=== PATIENT | male | born 1985 | race Caucasian/White ===

== ENCOUNTER 2017-09-01 10:56 | Emergency (ER) | payer OTHER ==
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
[2017-09-01 11:51] VITALS: BP 165/73; PULSE 95; RESP 18; TEMP 98.6; O2SAT 95
== END 2017-09-01 12:04 | disposition home or self-care (01) ==
DX: G89.18 Other acute postprocedural pain (principal); M54.9 Dorsalgia, unspecified

== ENCOUNTER 2018-03-09 15:51 | Emergency (ER) | payer OTHER ==
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
[2018-03-09] MEDS ORDERED: KETOROLAC 15 MG/1 ML SDV IVP ONE (17:24)
[2018-03-09] MEDS ORDERED: fentaNYL 100 MCG/2 ML INJ IVP ONE ×2 (17:24→19:09)
[2018-03-09] MEDS ORDERED: NS 1,000 ML IV ONE (17:24)
[2018-03-09] MEDS ORDERED: ONDANSETRON 4 MG/2 ML VIAL IVP ONE (17:24)
[2018-03-09] MEDS ORDERED: GADOBUTROL 10 ML VIAL IVP ONE (18:03)
[2018-03-09] MEDS ORDERED: OXYCODONE/APAP 5/325 TAB PO ONE (18:55)
[2018-03-09 19:54] VITALS: BP 143/100
== END 2018-03-09 19:54 | disposition home or self-care (01) ==
DX: M54.5 Low back pain (principal); M48.061 Spinal stenosis, lumbar region without neurogenic claudication; E86.9 Volume depletion, unspecified; Z98.890 Other specified postprocedural states
CPT/HCPCS: 82435-PO; 82565-PO; 82947-PO; 84132-PO; 84295-PO; 84520-PO; 85014-PO; 96374; A9585; J1885; J2405; J3010

== ENCOUNTER 2018-03-11 10:25 | Emergency (ER) | payer SELFPAY ==
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
[2018-03-11] MEDS ORDERED: HYDROmorphONE/DILAUDID 2 MG TAB PO ONE (11:23)
[2018-03-11] MEDS ORDERED: HYDROmorphONE/DILAUDID 2 MG/ML INJ IM ONE (11:28)
[2018-03-11 11:43] VITALS: BP 170/95
== END 2018-03-11 11:43 | disposition home or self-care (01) ==
DX: M54.5 Low back pain (principal)
CPT/HCPCS: J1170

== ENCOUNTER 2018-03-17 13:39 | Inpatient (IN) | payer OTHER ==
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
[2018-03-17] MEDS ORDERED: HYDROmorphONE/DILAUDID 2 MG/ML INJ IVP ONE ×2 (15:23→16:29)
[2018-03-17] MEDS ORDERED: LORazepam 2 MG/ML INJ IVP ONE (15:43)
[2018-03-17] MEDS ORDERED: ONDANSETRON DISINTEGRATING 4 MG TAB PO PRN (16:01)
[2018-03-17] MEDS ORDERED: ACETAMINOPHEN 325 MG TAB PO PRN (16:01)
[2018-03-17] MEDS ORDERED: ONDANSETRON 4 MG/2 ML VIAL IVP PRN (16:01)
[2018-03-17] MEDS ORDERED: HYDROmorphONE/DILAUDID 1 MG/ML INJ IVP PRN (16:09)
[2018-03-17] MEDS ORDERED: NALOXONE HCL 0.4 MG/ML INJ IVP PRN (16:28)
[2018-03-17] MEDS ORDERED: MAGNESIUM HYDROXIDE 30 ML UDCUP PO PRN (16:32)
[2018-03-17] MEDS ORDERED: POLYETHYLENE GLYCOL 3350 17 GM PKT PO PRN (16:32)
[2018-03-17] MEDS ORDERED: BISACODYL 10 MG SUPP PR PRN (16:32)
[2018-03-17] MEDS ORDERED: LACTULOSE 20 GM/30 ML UDCUP PO PRN (16:32)
--- NOTE | 2018-03-17 16:38 | NEUSURGPN ---
Assessment/Plan: Assessment: 32 yr old M with history of L5-S1 fusion in 2015 and L4-5 laminectomy 5 weeks ago in [place]. Plan: Please see full dictated consult when available -MRI lumbar shows severe left L4-5 stenosis, L4-5 disc herniation and interspinous fluid at L4-5. Will need to rule out infection prior to any surgical intervention. -Surgery suggested is a L4-5 fusion. Patient would like to try an injection which I have ordered for the morning. -NPO at midnight -Please call neurosurgery with any questions Subjective: Severe left leg pain Objective: AxO x3 CN 2-12 grossly intact INNO x4 5/5 BLE expect left EHL 5- 5/5 BUE Lumbar incision swollen at proximal end, intact, no drainage Neuro Check Frequency: per routine Urinary Catheter in Place: No - Physician Discussed Patient with : Marielena Patient Seen by : Calvin Neurosurgery Physical Exam - Vitals, I&O, Labs Vital Signs Temp Pulse Resp BP Pulse Ox 36.8 C 106 H 18 149/117 H 96 03/17/18 13:47 03/17/18 15:04 03/17/18 15:04 03/17/18 15:04 03/17/18 15:04 ICD10 Worksheet Patient Problems: Problems Problem Status Onset Lumbar radiculopathy, acute Acute Lumbar stenosis Acute
[2018-03-17 17:42] LABS: PLATELET COUNT 241 10^3/uL (150-400)
[2018-03-17] MEDS: HYDROmorphONE/DILAUDID 6 MG/30 ML PCA IV PRN (18:00)
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
[2018-03-17 18:23] LABS: INR 0.97 (0.83-1.16)
[2018-03-17 19:35] LABS: PROTIME(PATIENT) 13.1 SEC (12.0-15.0)
[2018-03-17] MEDS ORDERED: PREGABALIN 50 MG CAP PO SCH (21:00)
[2018-03-17] MEDS ORDERED: PREGABALIN 100 MG CAP PO SCH (21:00)
[2018-03-17] MEDS ORDERED: oxyCODONE IR 5 MG TAB PO PRN ×2 (21:10→22:29)
[2018-03-17] MEDS: PREGABALIN 150 MG CAP PO SCH (21:35)
[2018-03-17] MEDS: LORazepam 2 MG/ML INJ IVP PRN (21:37)
[2018-03-17] MEDS: ACETAMINOPHEN 500 MG TAB PO SCH (23:07)
[2018-03-17] MEDS: SENNOSIDES/DOCUSATE SODIUM TAB PO SCH (23:30)
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
[2018-03-18] MEDS: HYDROmorphONE/DILAUDID 6 MG/30 ML PCA IV PRN ×2 (05:23→13:58)
[2018-03-18] MEDS: LORazepam 2 MG/ML INJ IVP PRN ×3 (05:37→18:48)
--- NOTE | 2018-03-18 07:20 | NEUSURGPN ---
Assessment/Plan: Assessment: 32 yr old M with history of L5-S1 fusion in 2015 and L4-5 laminectomy 5 weeks ago in [place]-admitted to with LLE pain and LBP Plan: -lumbar stenosis at L4/5-pt with ASD at L4/5 and will need surgery if not responsive to injections -pt does not want surgery and wants to exhaust all conservative measures which we are supportive of this as well -pending injections after approval from as there is a consideration of an infection-injection on hold -PT/OT -call with any questions or concerns -MRI lumbar shows severe left L4-5 stenosis, L4-5 disc herniation and interspinous fluid at L4-5. Will need to rule out infection prior to any surgical intervention. -surgery suggested is a L4-5 fusion -NPO at midnight -Please call neurosurgery with any questions Subjective: Awake and alert. NAD. Pt with continued lower back and LLE pain. No paris/neck/ chest/abd or gu complaints. No f/c/n/v/d. Objective: AAO x 3, PERRLA/EOMI no droop CN 2-12 grossly intact +lt touch 5/5 BUE/BLE = Neuro Check Frequency: per routine Urinary Catheter in Place: No - Physician Discussed Patient with : Calvin Patient Seen by : Calvin Neurosurgery Physical Exam - Vitals, I&O, Labs I and O 03/17/18 03/18/18 03/19/18 05:59 05:59 05:59 Intake Total 200 Balance 200 Intake: Oral (ml) 200 Other: Intake Quantity Yes Sufficient Number of Voids Toilet 2 Vital Signs Temp Pulse Resp BP Pulse Ox 37.0 C 83 16 158/110 H 93 03/18/18 04:00 03/18/18 06:00 03/18/18 06:00 03/18/18 06:00 03/18/18 06:00 Laboratory Results 03/17/18 16:52 03/17/18 16:52 ICD10 Worksheet Patient Problems: Problems Problem Status Onset Lumbar radiculopathy, acute Acute Lumbar stenosis Acute
[2018-03-18] MEDS: ACETAMINOPHEN 500 MG TAB PO SCH ×2 (08:19→15:59)
[2018-03-18] MEDS: PREGABALIN 150 MG CAP PO SCH (08:19)
[2018-03-18] MEDS: SENNOSIDES/DOCUSATE SODIUM TAB PO SCH (08:20)
[2018-03-18] MEDS ORDERED: hydrALAZINE 20 MG/ML VIAL IVP PRN (08:24)
[2018-03-18] MEDS ORDERED: HYDROmorphONE/DILAUDID 1 MG/ML INJ IVP ONE (08:52)
--- NOTE | 2018-03-18 08:55 | HOSPPROG ---
Hospitalist Progress Note Assessment/Plan: #Acute on chronic pain control: cont Dilaudid CAREER TRANSITION SPECIALIST. I have calculated recent home usage that is reflected in basal rate with adequate breakthrough -considered adding Soma, but very somnolent this morning -suspect PTSD, anxiety contributing -no e/o infection thus far: afebrile, no white count. Blood cultures pending #Toxic encephalopathy: additional oxy was ordered last night in combo with Ativan. Decrease ativan. Cont CAREER TRANSITION SPECIALIST at current dose. NO additional oral medications #L4-L5 stenosis: IR to perform epidural injection today. Ultimately warrants a fusion #Accelerated HTN: PRN hydral. He reports normal BP at home #PTSD #Diet: regular Disp: inpatient for acute on chronic pain warranting CAREER TRANSITION SPECIALIST, epidural injection Subjective: required sternal rub this morning by staff because somnolent Objective: Vital Signs Temp Pulse Resp BP Pulse Ox 36.7 C 73 18 176/103 H 92 03/18/18 07:37 03/18/18 07:37 03/18/18 07:37 03/18/18 07:37 03/18/18 07:37 Laboratory Results 03/17/18 16:52 03/17/18 16:52 03/17/18 03/18/18 03/19/18 05:59 05:59 05:59 Intake Total 200 Balance 200 PT 13.1 SEC (12.0-15.0) 03/17/18 16:52 INR 0.97 (0.83-1.16) 03/17/18 16:52 - Time Spent With Patient Time Spent with Patient: greater than 35 minutes Time Spent with Patient: Greater than 35 minutes spent on this patients care, greater than 50% of time spent counseling, educating, and coordinating care regarding the above mentioned plan. - Physical Exam Constitutional: uncomfortable Ears, Nose, Mouth, Throat: moist mucous membranes Cardiovascular: regular rate and rhythym Respiratory: no respiratory distress Gastrointestinal: normoactive bowel sounds Genitourinary: no bladder fullness Skin: warm Musculoskeletal: other (back with swelling at lumbar surgical site. no redness, drainage) Neurologic: CN II-XII Intact Psychiatric: anxious ICD10 Worksheet Patient Problems: Problems Problem Status Onset Lumbar radiculopathy, acute Acute Lumbar stenosis Acute
[2018-03-18] MEDS ORDERED: DICLOFENAC SODIUM 75 MG TAB PO SCH (09:00)
[2018-03-18] MEDS ORDERED: HYDROmorphone HCL 0.5 MG/0.5 ML SYR IVP ONE (09:00)
--- NOTE | 2018-03-18 14:10 | ASMTCMCOM ---
CM Note CM Note Notes: Pt presents with lumbar rediculopathy, spinal stenosis. Neurosurgery consulting, will try non-surgical management and pt to have injection this afternoon. Pt is (hx PTSD, anxiety) who resides with fisuzette in a second floor rental. PT rec [facility] vs. SNF today. CM to follow pt progress after injection for d/c planning. D/c plan of care: TBD Date Signed: 03/18/2018 02:09 PM Electronically Signed By:LYNETTE Angela
[2018-03-18] MEDS ORDERED: TRIAMCINOLONE ACETONIDE 200 MG/5 ML MDV IM ONE (15:34)
[2018-03-18] MEDS ORDERED: LIDO/EPI 1% **for epidural** 30 ML SDV ONE (15:35)
[2018-03-18] MEDS ORDERED: LIDOCAINE 1% 300 MG/30 ML SDV ONE (15:36)
--- NOTE | 2018-03-18 15:56 | PDMN ---
Medical Necessity Medical necessity: Pt meets inpt criteria per MD order and [facility] [place]-[facility], Back Pain. 32 y/o w/hx L1-S1 reconstruction presented w/severe back pain, admitted w/acute on chronic back pain requiring IV Dilaudid PROFESSOR OF COMMUNICATION ARTS for pain control and IV Ativan for spasms and anxiety, recent MRI shows sever lumbar stenosis at L4/5 w/ASD. Neurosurg consult, surg may be needed if not responsive to injections, PT/OT evals pending, anticpate>2MN for ongoing eval/management.
[2018-03-18] MEDS ORDERED: MIDAZOLAM 2 MG/2 ML VIAL IVP PRN (17:08)
[2018-03-18] MEDS ORDERED: FLUMAZENIL 0.5 MG/5 ML MDV IVP PRN (17:08)
[2018-03-18] MEDS ORDERED: fentaNYL 100 MCG/2 ML INJ IVP PRN (17:08)
[2018-03-18] MEDS ORDERED: NS 1,000 ML IV SCH (17:15)
[2018-03-18] MEDS ORDERED: HYDROmorphone HCL 0.5 MG/0.5 ML SYR IVP PRN (18:11)
--- NOTE | 2018-03-18 18:12 | PDRADPN ---
Radiology Procedure Note Date of Procedure: 03/18/18 Radiologist: Jessica Wilkins Anesthesia: IV Sedation Pre-op Diagnosis: SEVERE BACK PAIN Post-op Diagnosis: SAME Indication: PAIN Procedure: CAUDAL AND L3-4 MARTÍN Inf/Abcess present in the surg proc area at time of surgery?: No
[2018-03-18] MEDS ORDERED: LORazepam 2 MG/ML INJ ONE (18:44)
[2018-03-18] MEDS ORDERED: HYDROmorphONE/DILAUDID 2 MG/ML INJ ONE (19:34)
[2018-03-18 20:18] VITALS: BP 174/101
--- NOTE | 2018-03-19 15:08 | GDS ---
DISCHARGE DIAGNOSES: 1. Acute on chronic back pain. 2. Chronic opioid dependency. 3. Posttraumatic stress disorder, likely anxiety. 4. Hypertension. CONSULTATIONS: Dr. Lauro Simpson, Dr. Hector Wilkins. PROCEDURES: L3 caudal epidural injection. HISTORY OF PRESENT ILLNESS: A 32-year-old male with history of L1-S1 reconstruction surgery, who pre sented to the ER several times over the past few weeks. His most recent surgery was a laminectomy at the end of January in [place]. In August, he slipped and fell on an icy hill, which resulted i n progressive back pain and he underwent this laminectomy. He was doing well, doing physical therapy , but over the last week, pain has progressed. He has been evaluated at [facility], was started on a Medrol Ellis and Lyrica. He had been planned to have an epidural injection, but pain became so signif icant that he presented to the hospital. He had been taking 30 mg of oxycodone every 4 hours. Previous to that he was taking MS Contin 90 b.i .d. plus breakthrough. New symptom for him was numbness, weakness in his left foot. He was evaluate d by Dr. Simpson's team and recommended fusion surgery, but patient did not want that initially becpola e he needs to get settled here with his home and his girlfriend. HOSPITAL COURSE BY PROBLEM: 1. Acute on chronic back pain: Secondary to lumbar stenosis. Recommended fusion surgery. He was i nitially placed on Dilaudid TOWER HOIST OPERATOR and Ativan for spasms. He became somnolent; thus, dosage was not esc alated. He became very frustrated. He underwent epidural injection by Dr. Wilkins yesterday, and when tiarra armstrong returned from procedure, he asked if his medications would be increased, and when told no, he left against medical advice. 2. History of posttraumatic stress disorder, likely anxiety. This is contributing to his pain. 3. Hypertension: Was given p.r.n. hydralazine here. Recommend follow up as an outpatient. DISPOSITION: Patient left AMA after his spinal injection. /[id number]/MODL
== END 2018-03-18 21:25 | disposition left against medical advice (07) | DRG 552 ==
LOC: INTOOBSV 15:28 → F3N 17:16 → OBSVTOIN 03-18 10:59 → UNDODISIN 03-18 21:25
PROVIDERS: ADMIT Internal Medicine; ATTEND Internal Medicine
PROC: 3E0S33Z Introduction of Anti-inflammatory into Epidural Space, Percutaneous Approach (ICD-10-PCS; principal; 2018-03-18 18:20)
PROC: 3E0S3BZ Introduction of Anesthetic Agent into Epidural Space, Percutaneous Approach (ICD-10-PCS; principal; 2018-03-18 18:20)
DX: M48.061 Spinal stenosis, lumbar region without neurogenic claudication (principal); M54.16 Radiculopathy, lumbar region; G89.29 Other chronic pain; F11.20 Opioid dependence, uncomplicated; F43.10 Post-traumatic stress disorder, unspecified; R03.0 Elevated blood-pressure reading, without diagnosis of hypertension; M51.26 Other intervertebral disc displacement, lumbar region; M51.36 Other intervertebral disc degeneration, lumbar region; M54.42 Lumbago with sciatica, left side; F41.9 Anxiety disorder, unspecified; Z87.828 Personal history of other (healed) physical injury and trauma; Z98.1 Arthrodesis status
CPT/HCPCS: 97116-GP; 97162-GP; J0360; J1170; J2060; J2250; J3010; J3301

== ENCOUNTER 2018-03-21 09:02 | Emergency (ER) | payer SELFPAY ==
[2018-03-21 09:20] VITALS: BP 174/98
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
== END 2018-03-21 09:49 | disposition home or self-care (01) ==
DX: Z98.1 Arthrodesis status (principal); M54.16 Radiculopathy, lumbar region; G89.29 Other chronic pain

== ENCOUNTER 2018-05-17 17:44 | Emergency (ER) | payer OTHER ==
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
[2018-05-17] MEDS ORDERED: HYDROmorphONE/DILAUDID 2 MG/ML INJ IM ONE (18:16)
[2018-05-17 19:24] VITALS: BP 145/110
== END 2018-05-17 19:24 | disposition home or self-care (01) ==
DX: M54.16 Radiculopathy, lumbar region (principal); G89.29 Other chronic pain
CPT/HCPCS: J1170

== ENCOUNTER 2018-06-04 15:46 | Emergency (ER) | payer OTHER ==
[2018-06-04] MEDS ORDERED: KETOROLAC 15 MG/1 ML SDV IVP ONE (17:36)
[2018-06-04] MEDS ORDERED: HYDROmorphONE/DILAUDID 2 MG/ML INJ IVP ONE ×3 (17:37→19:02)
[2018-06-04] MEDS ORDERED: METAXALONE 800 MG TAB PO ONE (17:37)
--- NOTE | 2018-06-04 17:55 | EDPHY ---
H & P Smoking Status: Never smoked Time Seen by Provider: 06/04/18 17:23 HPI/ROS: CHIEF COMPLAINT: Low back pain HISTORY OF PRESENT ILLNESS: Patient is a 32-year-old male with had an extensive history of low back pain. He has been seen in this emergency room multiple times for acute on chronic low back pain. Today he reports he is looking for a single dose of pain medication along with some muscle relaxants to help with an acute exacerbation of his typical low back pain. Denies any saddle paresthesias, leg weakness, incontinence, fever, pain with urination, recent injury. Does state that he has been more active recently and thinks this is what exacerbated his back pain. ROS As detailed in HPI (Satya Cruz) Physical Exam: General: Alert and oriented. Nontoxic appearing. No acute distress HEENT: Pupils PERRLA. No oral lesions. Cardiopulmonary: Regular rate and rhythm. No lower extremity edema Skin: [place] warm and dry. No lesions. Muscle skeletal: Moving all 4 extremities. Equal strength in upper extremities and lower extremities. Ambulatory. (Satya Cruz) Constitutional: Initial Vital Signs Temperature (C) 37 C 06/04/18 15:53 Heart Rate 100 06/04/18 15:53 Respiratory Rate 16 06/04/18 15:53 Blood Pressure 140/117 H 06/04/18 15:53 O2 Sat (%) 98 06/04/18 15:53 O2 Delivery Mode Room Air Allergies/Adverse Reactions: No Known Allergies Allergy (Verified 05/17/18 17:47) Home Medications: Medication Instructions Recorded Diclofenac Sodium [Voltaren 75 MG 75 mg PO BID 03/17/18 (*)] Pregabalin [Lyrica 50mg (*)] 150 mg PO BID 03/17/18 oxyCODONE IR [Oxycodone Ir (*)] 10 - 30 mg PO Q4H PRN 03/17/18 Belbuca 05/17/18 Phenergan 05/17/18 Medical Decision Making ED Course/Re-evaluation: I did not see this patient while he was in the emergency department. However his care was discussed with the PA while the patient was in the department. I agree with treatment plan and management (Harvinder Waters) 32-year-old male here with chronic low back pain history of multiple surgeries. He has no new neurologic complaints today and no signs of infection and no history suspicious of cauda equina. He was given 1 dose of IV Dilaudid, Toradol and oral Skelaxin. He agrees to call his pain management doctor tomorrow for further management of his pain. I considered epidural abscess, cauda equina, fracture, neoplasm, muscle spasm, sciatica, renal colic (Satya Cruz) - Data Points Medications Given: Discontinued Medications Hydromorphone HCl (Dilaudid) 1 mg IVP EDNOW ONE Stop: 06/04/18 17:38 Last Admin: 06/04/18 17:50 Dose: 1 mg Hydromorphone HCl (Dilaudid) 0.5 mg IVP EDNOW ONE Stop: 06/04/18 18:26 Last Admin: 06/04/18 18:38 Dose: 0.5 mg Hydromorphone HCl (Dilaudid) 0.5 mg IVP EDNOW ONE Stop: 06/04/18 19:03 Last Admin: 06/04/18 19:08 Dose: 0.5 mg Ketorolac Tromethamine (Toradol) 15 mg IVP EDNOW ONE Stop: 06/04/18 17:37 Last Admin: 06/04/18 17:50 Dose: 15 mg Metaxalone (Skelaxin) 800 mg PO ONCE ONE Stop: 06/04/18 17:38 Last Admin: 06/04/18 18:13 Dose: 800 mg Departure - Departure Disposition: Home, Routine, Self-Care Clinical Impression: Chronic low back pain without sciatica Condition: Good Instructions: Chronic Back Pain (DC) Additional Instructions: Please call your pain management doctor tomorrow for any persistent pain. Return to the ER for fever, leg weakness, trouble urinating or any incontinence of bladder or bowel. Referrals: Juaquin Johnston MD [Primary Care Provider] - As per Instructions
[2018-06-04] MEDS ORDERED: HYDROmorphONE/DILAUDID 1 MG/ML INJ ONE (18:33)
[2018-06-04 19:16] VITALS: BP 137/99
== END 2018-06-04 19:16 | disposition home or self-care (01) ==
DX: M54.5 Low back pain (principal); G89.29 Other chronic pain
CPT/HCPCS: 96374; J1170; J1885

== ENCOUNTER 2018-06-24 09:19 | Emergency (ER) | payer OTHER ==
[2018-06-24] MEDS ORDERED: HYDROmorphONE/DILAUDID 2 MG/ML INJ IVP ONE ×2 (09:55→10:50)
[2018-06-24] MEDS ORDERED: KETOROLAC 30 MG/1 ML SDV IVP ONE (09:55)
[2018-06-24] MEDS ORDERED: DIAZEPAM 10 MG/2 ML SYR IVP ONE ×2 (09:56→10:41)
--- NOTE | 2018-06-24 10:01 | EDPHY ---
H & P Time Seen by Provider: 06/24/18 09:29 HPI/ROS: This patient has history of chronic back pain with acute worsening since a fall 4 days prior to arrival in ice. He explains that he has a history of lumbar laminectomy and most recently fusion a few months ago [place] by Dr. Álvarez for spinal stenosis from discogenic disease and slipped on ice 4 days prior to arrival trying to catch himself with both arms against the wall in a truck and then landed on his buttocks. Since that time he has developed radiation of pain down bilateral thighs occasionally to his left foot. He also describes new onset of paresthesias to his left leg similar to the pains that he had prior to surgery. He reports compliance with his medications that include NSAIDs, Lyrica, oxycodone and Belbuca, however there is a delay in the pharmacy having the Belbuca so he missed this am's dose. ROS: Constitutional: No recent fevers HEENT: No complaints Neuro as per HPI. No bowel or bladder incontinence. Pulmonary: No shortness of breath Cardiovascular: No complaints GI: No abdominal pain : No dysuria frequency urgency or hematuria 7 point review of symptoms is performed and otherwise negative with exception of pertinent positives and negatives listed in HPI and ROS Past Medical/Surgical History: Lumbar fusion by Dr. Wesly Castellon Smoking Status: Never smoked Physical Exam: Physical Exam Vital signs are normal. General: No acute distress HEENT: Atraumatic. Eyes: Pupils equal and react to light. Extraocular motions are intact. Lungs: Clear to auscultation bilaterally. No respiratory distress. Cardiac: Regular rate and rhythm with no murmur gallop rub Abdomen: Soft, nontender Back: Patient has midline surgical incision scar that is clean dry intact with midline tenderness the same region lumbar spine. He has positive straight leg raise left leg about it tend to 12 degrees right leg at about 20 degrees. He has limited range of motion due to pain. Skin: Facial erythema-rash he noticed this morning. No warmth to touch. No petechia or purpura. Patient is mild diaphoresis Neuro: Alert and oriented x3. 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 He maintains 5/5 strength in great toe dorsiflexion and plantar flexion bilaterally lower extremities play. He maintains 2+ symmetric patellar DTRs and weak but symmetric bilateral Achilles DTRs. Initial differential diagnosis: Acute on chronic low back pain from back strain , lumbar compression fracture, hardware failure from fall, pyelonephritis, paraspinous or epidural abscess, neoplasm Constitutional: Initial Vital Signs Temperature (C) 36.8 C 06/24/18 09:28 Heart Rate 112 H 06/24/18 09:28 Respiratory Rate 18 06/24/18 09:28 Blood Pressure 171/108 H 06/24/18 09:28 O2 Sat (%) 98 06/24/18 09:28 O2 Delivery Mode Room Air Allergies/Adverse Reactions: No Known Allergies Allergy (Verified 05/17/18 17:47) Home Medications: Medication Instructions Recorded Diclofenac Sodium [Voltaren 75 MG 75 mg PO BID 03/17/18 (*)] Pregabalin [Lyrica 50mg (*)] 150 mg PO BID 03/17/18 oxyCODONE IR [Oxycodone Ir (*)] 10 - 30 mg PO Q4H PRN 03/17/18 Belbuca 05/17/18 Phenergan 05/17/18 Diazepam [Valium 5 MG (*)] 5 mg PO TID PRN #20 tab 06/24/18 methylPREDNISolone [Medrol Dose 4 mg PO AD #1 packet 06/24/18 Ellis] MDM/Departure - MDM Imaging Results: Lumbar spine x-rays: Hardware intact with no acute abnormalities when compared to prior study from May of 2018 by my interpretation Imaging: I viewed and interpreted images myself Medications Given: Discontinued Medications Diazepam (Valium) 5 mg IVP EDNOW ONE Stop: 06/24/18 09:57 Last Admin: 06/24/18 10:46 Dose: Not Given Diazepam (Valium) 5 mg IVP EDNOW ONE Stop: 06/24/18 10:42 Last Admin: 06/24/18 10:43 Dose: 5 mg Hydromorphone HCl (Dilaudid) 0.5 mg IVP EDNOW ONE Stop: 06/24/18 09:56 Last Admin: 06/24/18 10:39 Dose: 0.5 mg Hydromorphone HCl (Dilaudid) 1 mg IVP EDNOW ONE Stop: 06/24/18 10:51 Last Admin: 06/24/18 11:03 Dose: 1 mg Ketorolac Tromethamine (Toradol) 15 mg IVP EDNOW ONE Stop: 06/24/18 09:56 Last Admin: 06/24/18 10:37 Dose: 15 mg ED Course/Re-evaluation: IV analgesics and Valium as well as Toradol with partial relief. Discussion: Patient with significant past history lumbar disease and surgery with acute pain after fall without interval change in his lumbar spine films. No evidence of acute compression fracture. While he has all radicular symptoms in the left leg his reported light touch sensory deficit does not seem to be in anatomical distribution at this time-stocking distribution currently. Will cover him with the steroid burst given radicular symptoms, addition of muscle relaxant and close follow up with his back surgeon. Currently no evidence of cauda equina. He understands need to return should he develop any significant worsening of symptoms despite the treatment plan - Depart Disposition: Home, Routine, Self-Care Clinical Impression: Low back pain Condition: Fair Instructions: Acute Low Back Pain (ED) Additional Instructions: Diagnosis: Acute on chronic low back pain Plan: Continue current medications. Add Solu-Medrol Dosepak and Valium to medication plan and Call your surgeon for follow-up appointment. Follow-up tomorrow with her chronic pain physician. Return emergency department for any significant worsening despite the treatment plan Prescriptions: Diazepam [Valium 5 MG (*)] 5 mg PO TID PRN #20 tab PRN Reason: Spasms methylPREDNISolone [Medrol Dose Ellis] 4 mg PO AD #1 packet Referrals: NONE *PRIMARY CARE P,. [Primary Care Provider] - As per Instructions Angelica Mojica MD [Medical Doctor] - As per Instructions
[2018-06-24] MEDS ORDERED: DIAZEPAM 5 MG/ML 1 ML SYR ONE (10:31)
[2018-06-24 11:26] VITALS: BP 144/114
== END 2018-06-24 11:25 | disposition home or self-care (01) ==
LOC: CED 09:19
DX: M54.5 Low back pain (principal); G89.29 Other chronic pain
CPT/HCPCS: 72100-PO; 96374-ER; 96375-ER; 96376-ER; 99284-ER; J1170; J1885; J3360

== ENCOUNTER 2018-07-05 10:48 | Emergency (ER) | payer OTHER ==
[2018-07-05 11:02] VITALS: BP 158/108
[2018-07-05] MEDS ORDERED: LORazepam 1 MG TAB PO ONE (11:37)
--- NOTE | 2018-07-05 11:41 | EDPHY ---
H & P Time Seen by Provider: 07/05/18 11:02 HPI/ROS: Over the past week this patient has had issues with nausea and vomiting on top of his chronic low back pain was seen at [facility] on evening, 3 days prior to arrival with a Haldol injection for nausea and vomiting with improvement in his nausea vomiting he reports feeling anxious and agitated since that time. He called [facility] a was told that the affect of the Haldol should resolve within 1/2 days or less. However, he reports having ongoing feeling of mild dyskinesia-urge to move around more than usual and insomnia over the past few nights. He tried drinking alcohol and smoking marijuana without improvement. He has also been taking his pain medications was chronic back pain without relief of his anxiety. He reports that his chronic back pain is slightly worse attributes this to more movement due to the anxiety. He reports that he is out of the Valium that was prescribed for muscle spasm was actually reduced to 2 mg tabs total of 20 on June 24. ROS: Constitutional: No fevers HEENT: No complaints Neuro: No current radicular symptoms go or numbness. No bowel or bladder incontinence. He denies any headache or confusion. Pulmonary: No shortness of breath Cardiovascular: No lightheadedness or chest pain Integumentary: No skin rash 7 point review of symptoms is performed and otherwise negative with exception of pertinent positives and negatives listed in HPI and ROS Past Medical/Surgical History: Chronic back pain Laminectomy Smoking Status: Never smoked Physical Exam: Vital signs notable for hypertension. Otherwise normal General Appearance: Alert, no distress. Eyes: Pupils equal and round no pallor or injection. ENT, Mouth: Mucous membranes moist. Respiratory: No respiratory distress. Cardiovascular: Regular rate and rhythm. Back: Lumbar tenderness bilaterally. Neurological: GCS 15. Retains normal light touch sensory exam bilateral lower extremities and 2+ symmetric patellar DTRs bilaterally. He maintains 5/5 strength in great toe dorsiflexion plantar flexion bilaterally. Skin: Warm and dry, no rashes. Musculoskeletal: Neck is supple nontender. Extremities are symmetrical, full range of motion. Psychiatric: Mild anxiety. No pressured speech, psychotic symptoms thoughts of hurting other people. DIFFERENTIAL DIAGNOSIS: After history and physical exam differential diagnosis was considered for akathisia from Haldol/extrapyramidal side FX, general anxiety , PTSD Constitutional: Initial Vital Signs Temperature (C) 37 C 07/05/18 10:57 Heart Rate 97 07/05/18 10:57 Respiratory Rate 17 07/05/18 10:57 Blood Pressure 158/108 H 07/05/18 10:57 O2 Sat (%) 98 07/05/18 10:57 O2 Delivery Mode Room Air Allergies/Adverse Reactions: No Known Allergies Allergy (Verified 07/05/18 11:02) Home Medications: Medication Instructions Recorded Diclofenac Sodium [Voltaren 75 MG 75 mg PO BID 03/17/18 (*)] Pregabalin [Lyrica 50mg (*)] 150 mg PO BID 03/17/18 oxyCODONE IR [Oxycodone Ir (*)] 10 - 30 mg PO Q4H PRN 03/17/18 Belbuca 05/17/18 Phenergan 05/17/18 Diazepam [Valium 5 MG (*)] 5 mg PO TID PRN #20 tab 06/24/18 methylPREDNISolone [Medrol Dose 4 mg PO AD #1 packet 06/24/18 Ellis] LORazepam [Ativan] 1 mg PO TID PRN #20 tablet 07/05/18 Propranolol HCl [Inderal 10mg (*)] 10 - 30 mg PO BID PRN #20 tab 07/05/18 hydrOXYzine HCL [Hydroxyzine HCl] 50 - 100 mg PO QID PRN #80 tablet 07/05/18 MDM/Departure - MDM Medications Given: Discontinued Medications Lorazepam (Ativan) 2 mg PO ONCE ONE Stop: 07/05/18 11:38 Last Admin: 07/05/18 11:41 Dose: 2 mg ED Course/Re-evaluation: Ativan 2 mg p.o. With partial improvement Patient reports he gets anxious from Benadryl so he avoided taking Benadryl as the [facility] recommended in response to the Haldol symptoms. Will try hydroxyzine instead, propranolol addition for situational anxiety as needed and Ativan as a backup plan for ongoing anxiety despite the 1st to medications. I discussed potential side effects of these medications with patient some detail answered all his questions prior to arrival. At his current back pain is consistent with chronic back pain without acute interval change were new injury. No evidence of cauda equina currently. - Depart Disposition: Home, Routine, Self-Care Clinical Impression: Dysphoric mood, Anxiety Condition: Good Instructions: Anxiety (ED) Additional Instructions: Diagnosis: Anxiety/dysphoric response/agitation after phenothiazine medication Plan: Hydroxyzine Propranolol and Ativan in addition if needed. Return for any significant worsening despite treatment plan Follow up with primary care physician for any ongoing symptoms. Prescriptions: hydrOXYzine HCL [Hydroxyzine HCl] 50 - 100 mg PO QID PRN #80 tablet PRN Reason: Anxiety LORazepam [Ativan] 1 mg PO TID PRN #20 tablet PRN Reason: Anxiety Propranolol HCl [Inderal 10mg (*)] 10 - 30 mg PO BID PRN #20 tab PRN Reason: Anxiety Referrals: NONE *PRIMARY CARE P,. [Primary Care Provider] - As per Instructions Miroslava Russell MD [Medical Doctor] - As per Instructions
== END 2018-07-05 11:45 | disposition home or self-care (01) ==
LOC: CED 10:48
DX: F41.9 Anxiety disorder, unspecified (principal); M54.5 Low back pain; G89.29 Other chronic pain
CPT/HCPCS: 99284-ER

== ENCOUNTER 2018-07-29 13:21 | Emergency (ER) | payer OTHER ==
[2018-07-29] MEDS ORDERED: HYDROmorphONE/DILAUDID 2 MG/ML INJ IVP ONE (14:19)
[2018-07-29] MEDS ORDERED: NS 1,000 ML IV ONE (14:19)
[2018-07-29] MEDS ORDERED: KETOROLAC 30 MG/1 ML SDV IVP ONE (15:00)
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
[2018-07-29 15:27] VITALS: BP 117/85
== END 2018-07-29 15:37 | disposition home or self-care (01) ==
LOC: CED 13:21
DX: M54.16 Radiculopathy, lumbar region (principal); G89.4 Chronic pain syndrome; E86.9 Volume depletion, unspecified; W19.XXXA Unspecified fall, initial encounter
CPT/HCPCS: 80048-ER; 96361-ER; 96374-ER; 96375-ER; 99284-ER; J1170; J1885

== ENCOUNTER 2018-08-06 16:23 | Emergency (ER) | payer OTHER ==
[2018-08-06 16:36] VITALS: BP 136/82
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
== END 2018-08-06 17:08 | disposition home or self-care (01) ==
LOC: CED 16:23
DX: M54.9 Dorsalgia, unspecified (principal)
CPT/HCPCS: 99282-ER

== ENCOUNTER 2018-08-18 18:15 | Emergency (ER) | payer OTHER ==
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
[2018-08-18 19:30] VITALS: BP 142/84
== END 2018-08-18 19:32 | disposition home or self-care (01) ==
LOC: CED 18:15
DX: M54.16 Radiculopathy, lumbar region (principal); Z87.891 Personal history of nicotine dependence
CPT/HCPCS: 99283-ER